=== PATIENT | female | born 1970 | race Caucasian/White ===

== ENCOUNTER → 2018-01-11 14:47 | Outpatient (CLI) | payer OTHER, SELFPAY ==
--- NOTE | 2018-01-11 | DI.US.S_ITS ---
PROCEDURE: US THYROID INDICATIONS: THYROID TECHNIQUE: Real-time scanning was performed of the thyroid gland, with image documentation. COMPARISON: None. FINDINGS: Right: Thyroid lobe measures 1.3 x 1.6 x 3.5 cm, and is heterogeneous in echotexture. Left: Thyroid lobe measures 1.1 x 1.6 x 3.5 cm, and is heterogeneous in echotexture. Isthmus: 5 mm thick. IMPRESSION: Bilaterally heterogeneous echotexture with no measurable nodules. Overall size is within normal limits although the isthmus is slightly thickened. TI-RADS one ACR TI-RADS definitions and recommendations: TI-RADS 1 (benign): 0 points. FNA not needed. TI-RADS 2 (not suspicious): 2 points. FNA not needed. TI-RADS 3 (mildly suspicious): 3 points. * FNA if 2.5 cm or larger, follow up if 1.5 cm or larger (at 1, 3, and 5 years). TI-RADS 4 (moderately suspicious): 4-6 points. * FNA if 1.5 cm or larger, follow up if 1 cm or larger (at 1, 2, 3, and 5 years). TI-RADS 5 (highly suspicious): 7 points or more. * FNA if 1 cm or larger, follow up if 0.5 cm or larger (every year for 5 years). Dictated by: Jimmy Fabian M.D. on 01/11/2018 at 16:51 Approved by: Jimmy Fabian M.D. on 01/11/2018 at 16:54
--- NOTE | 2018-01-11 | DI.MG.S_ITS ---
PROCEDURE: MM SPECIAL VIEW RT COMPARISON: [facility], MG, BILATERAL SCREEING MAMMOGRAM W/ CAD, 12/22/2017, 16:23. INDICATIONS: THYROID/SPECIAL VIEW RIGHT BREAST FINDINGS: IMPRESSION: Dictated by: Maria Del Carmen Sanchez M.D. on 01/11/2018 at 15:50 Approved by: Maria Del Carmen Sanchez M.D. on 01/11/2018 at 15:50
== END ==
PROVIDERS: Referring Provider Family Medicine; Visit Provider Internal Medicine Endocrinology, Diabetes & Metabolism
DX: R92.8 Other abnormal and inconclusive findings on diagnostic imaging of breast (principal); E04.2 Nontoxic multinodular goiter
CPT/HCPCS: 76536; 77065; G0279